=== PATIENT | female | born 1970 | race Caucasian/White ===

== ENCOUNTER 2024-05-14 13:28 | Emergency (ER) | payer SELFPAY ==
[2024-05-14 13:28] VITALS: BP 106/77; PULSE 79; RESP 18; TEMP 36.6; O2SAT 100; BMI 29.9
== END 2024-05-14 14:30 | disposition left against medical advice (07) ==
LOC: ED 14:34
DX: Z53.21 Procedure and treatment not carried out due to patient leaving prior to being seen by health care provider (principal)

== ENCOUNTER 2024-09-11 15:58 | Emergency (ER) | payer MEDICARE, SELFPAY ==
[2024-09-11 15:59] VITALS: BP 119/59; PULSE 109; RESP 16; TEMP 36.6; O2SAT 100; BMI 28.6
--- NOTE | 2024-09-11 16:42 | ED.VIS.BACK ---
HPI History of Present Illness Chief Complaint: Back PFSH PFSH Home Medications ?Medication ?Instructions ?Recorded ?Last Taken ?Type oxycodone 5 mg tablet 5 mg PO Q6H PRN pain 3 days #12 09/11/24 Unknown Rx tabs Allergy/AdvReac Type Severity Reaction Status Date / Time Sulfa (Sulfonamide Allergy Severe Anaphylaxis Verified 09/11/24 15:59 Antibiotics) Social History Smoking Status: Never smoker EXAM Physical Exam Const Vital Signs: 09/11/24 15:59 09/11/24 19:58 Temperature 97.9 F Temperature Source Oral Pulse Rate 109 H 101 H Respiratory Rate 16 20 H Blood Pressure 119/59 L Blood Pressure Mean 79 Pulse Ox 100 97 Oxygen Delivery Method Room Air MDM MDM MDM Narrative Medical decision making narrative: HISTORY OF PRESENT ILLNESS: 53-year-old female presents with low back pain, left hip pain. She notes this occurred after steroid injection. This occurred 6 weeks ago. She notes she thinks there was some sort of postprocedural complication. She is concerned that maybe her surgeon hit her spine. She also concerned that she has had he had retraction to the steroid. She is also concerned that she may have a dural leak. Patient denies any saddle anesthesia, urinary retention, bowel or bladder incontinence, lower extremity weakness, fever or IV drug use, no recent urinary catheterization. REVIEW OF SYSTEMS: Pertinent positives: Back pain Pertinent negatives: Bowel or bladder incontinence, urine retention PHYSICAL EXAM: Nursing triage notes reviewed, Vital signs reviewed Constitutional: please see mdm HENT: MMM Eyes: Pupils equal round and reactive to light, Extraocular muscles intact Neck: No stridor, no JVD, full neck ROM Lungs: Clear to auscultation, No wheezing or rales. No increased work of breathing, no conversational dyspnea, no accessory muscle use, no nasal flaring. No respiratory distress noted Heart: Regular rate and rhythm, No murmurs, No rubs and No gallops, 2+ distal pulses (radial, femoral, posterior tibial) in all extremities Abdomen: Soft, there is no tenderness, rigidity, rebound or guarding, no obvious peritoneal signs, no palpable pulsatile abdominal masses, no auscultated abdominal bruit : No CVAT Extremities: No edema Back: No step-offs deformities. No redness. No evidence of any trauma. Neuro: Intact sensation L1-S1 dermatomal distributions. Intact 5/5 strength in hip flexion (T12-L3). Knee extension (L2-L4). Ankle dorsiflexion (L4-L5). Ankle plantar flexion (S1). Great toe extension (L5). 2+ patellar and Achilles DTRs. Skin: No rash or lesions noted MEDICAL DECISION MAKING: Chief Complaint: Back pain External records reviewed: Reviewed prior imaging study Factors affecting care: chronic back pain Social determinants of health: none History obtained from others: none Consults: none MDM Narrative: Patient was tachycardic otherwise hemodynamically stable afebrile nontoxic. No stigmata of trauma. Lower extremities were neurovascularly intact. I considered the following differential diagnosis: Lumbar spine bony injury, herniated disc, left hip bony injury. Acute on chronic back pain. I gave patient oxycodone ALL IMAGES (IF OBTAINED) HAVE BEEN PERSONALLY REVIEWED AND INTERPRETED BY MYSELF. X-ray of the hip was read and reviewed by myself shows no acute fracture or dislocation. CT scan of the lumbar spine shows no evidence of bony abnormality Pain was slightly better after oxycodone and ibuprofen. No clear life-limiting etiology. Patient had no red flag symptoms to suggest need for MRI or emergent transfer for spine surgery consultation. Patient is appropriate for discharge home. Patient ambulated out of the emergency department out difficulty. The patient and/or family, caregivers express understanding. The patient and/or family, caregivers agrees with the plan. Shared decision making: I will have a discussion with the patient and or visitors regarding risk/benefits of further testing or admission. They will be made aware of of the risk/benefits inherent in this decision they will be given the opportunity to voice understanding. Total critical care time today provided was at least 0 minutes. This excludes separately billable procedures. Critical care time (if documented) is secondary to the patient having high probability of clinically significant/life threatening deterioration in the patient's condition which required my urgent intervention. Impression: 1. Acute on chronic back pain 2. Left hip pain Dispo: Discharge This note was generated with [employer] dictation software. It may contain incorrect words, spelling, and punctuation that were not noted in review of the chart prior to signing. Radiography Diagnostic Testing: Clinical Impression(s) from Imaging Studies Lumbar Spine CT 09/11/24 17:28 IMPRESSION: (NOT LISTED IN ORDER OF SIGNIFICANCE) Multilevel degenerative changes, as described above. Electronically Signed: Chito Guerra MD at 19:29 EST , Hip/Pelvis X-Ray 09/11/24 17:55 IMPRESSION: No evidence of displaced pelvic or hip fracture. Electronically Signed: Chito Guerra MD at 19:23 EST , Discharge Plan Triage Chief Complaint: Back ED Provider: Fernando Diaz Dx/Rx/DC Orders Clinical Impression: Back pain Instructions: ED Back Pain (Acute or Chronic) Prescriptions: New oxycodone 5 mg tablet 5 mg PO Q6H PRN (Reason: pain) 3 Days Qty: 12 0RF Primary Care Provider: Shavon Cote Referrals: Zay Barba MD [Med Staff - Active Staff] - Activity Restrictions/Additional Instructions: Thank you for trusting us with your care today! Your imaging studies were negative for acute bony abnormalities of the spine or hip. Please take Tylenol (2 pills, 650 mg), ibuprofen (2 pills, 400 mg) every 6 hours as needed for pain and fever control. Please take oxycodone for breakthrough pain. Please return to the emergency department if your symptoms change or worsen. Please follow with your primary care physician for further outpatient evaluation and management. Print Language: Croatian Disposition Disposition: Home, Self Care Discharge Date/Time: 09/11/24 20:34
--- NOTE | 2024-09-11 17:28 | CT_ITS ---
STUDY: CT LUMBAR SPINE WITHOUT CONTRAST REASON FOR EXAM: Female, 53 years old. back pain. BACK INJECTION 6 WEEKS AGO, PAIN SINCE TECHNIQUE: The patient was scanned in a multi detector CT scanner. High resolution transaxial imaging was performed. Images were obtained from T12 to S1. Sagittal and coronal images were reconstructed. Individualized dose optimization techniques were used for this CT. COMPARISON: None FINDINGS: Normal lumbar lordosis. There is no substantial scoliosis. Aortic calcifications. Normal vertebrae of the lumbar spine. L1-2: Normal endplates. Normal disc height and morphology. Normal central canal and intervertebral neuroforamina. L2-3: Loss of intervertebral disc height. There is endplate spondylosis of the vertebral body. Normal central canal and intervertebral neuroforamina. There is bilateral facet arthropathy. L3-4: Loss of intervertebral disc height. There is endplate spondylosis of the vertebral body. Normal central canal and intervertebral neuroforamina. There is bilateral facet arthropathy. L4-5: Loss of intervertebral disc height. There is endplate spondylosis of the vertebral body. Normal central canal and intervertebral neuroforamina. There is bilateral facet arthropathy. L5-S1: Normal endplates. Normal disc height and morphology. Normal central canal and intervertebral neuroforamina. Normal visualized paraspinous soft tissue structures. CT/Spine Lumbar without Contrast IMPRESSION: (NOT LISTED IN ORDER OF SIGNIFICANCE) Multilevel degenerative changes, as described above. Electronically Signed: Chito Guerra MD at 19:29 EST ,
[2024-09-11] MEDS: oxyCODONE 5 MG Tablet PO (17:38)
[2024-09-11] MEDS: Ibuprofen 200 MG Tablet 400 MG PO (17:38)
--- NOTE | 2024-09-11 17:55 | RAD_ITS ---
EXAM: XR LEFT HIP WITH PELVIS WHEN PERFORMED, 2 OR 3 VIEWS CLINICAL INDICATION: pain TECHNIQUE: Two or three views of the left hip with pelvis when performed. COMPARISON: No relevant prior studies available. FINDINGS: BONES/JOINTS: Unremarkable. No displaced fracture. No destructive or sclerotic lesions. Note that overlapping bowel shadows may however obscure fine detail. Sacroiliac joint is unremarkable. No widening of the pubic symphysis. The articular structures are unremarkable. SOFT TISSUES: Unremarkable. No soft tissue swelling or gas. RAD/HIP, UNI W/ Pelvis 2-3 Views IMPRESSION: No evidence of displaced pelvic or hip fracture. Electronically Signed: Chito Guerra MD at 19:23 EST Reading Location ID and State: [facility] / [place] , Service support ,
[2024-09-11 19:58] VITALS: PULSE 101; RESP 20; O2SAT 97
== END 2024-09-11 20:34 | disposition home or self-care (01) ==
PROVIDERS: Emergency Provider Emergency Medicine; PCP Family Medicine; Visit Provider Emergency Medicine
DX: M54.50 Low back pain, unspecified (principal); G89.29 Other chronic pain; M25.552 Pain in left hip
CPT/HCPCS: 72131; 73502; 99285

== ENCOUNTER → 2024-09-21 | Outpatient (CLI) | payer MEDICARE, SELFPAY ==
[2024-09-21 18:40] LABS: Amphetamine Urine NEGATIVE (<1000 ng/mL); Barbiturate Urine VISTA NEGATIVE (< 200 ng/mL); Benzodiazepine Urine VISTA NEGATIVE (< 200 ng/mL); Cocaine Urine VISTA NEGATIVE (< 300 ng/mL); Ecstacy Urine VISTA NEGATIVE (< 500 ng/mL); Methadone Urine VISTA NEGATIVE (< 300 ng/mL); PCP Urine VISTA NEGATIVE (< 25 ng/mL); THC Urine VISTA NEGATIVE (< 50 ng/mL); Vista UDS pH Range 5
== END | disposition home or self-care (01) ==
PROVIDERS: PCP Family Medicine; Referring Provider Anesthesiology; Visit Provider Anesthesiology
DX: F11.20 Opioid dependence, uncomplicated (principal)
CPT/HCPCS: 80307